=== PATIENT | male | born 1945 | race Caucasian/White ===

== ENCOUNTER 2021-11-08 02:27 | Inpatient (IN) | payer MEDICARE, OTHER ==
[~2021-11-08] VITALS: Ht 182.9 cm; Wt 108.9 kg
--- NOTE | 2021-11-08 02:45 | NUR ---
[id number] FROM [facility] FOR [facility] SLIP AND FALL C/O BACK PAIN. -HT, -KO. PLACED COMFORTABLY IN BED. VITALS CHECKED.
--- NOTE | 2021-11-08 02:50 | NUR ---
SEEN BY DR COOLEY AT BEDSIDE
--- NOTE | 2021-11-08 02:55 | NUR ---
PATIENT IS CONFUSED. AAOX3.
[2021-11-08] MEDS ORDERED: HYDROCODONE/APAP 5/325MG TABLET ONE (02:58)
[2021-11-08] MEDS ORDERED: HYDROCODONE/APAP 5/325MG TABLET PO ONE (03:00)
--- NOTE | 2021-11-08 03:15 | NUR ---
COVID SWAB DONE
--- NOTE | 2021-11-08 03:15 | NUR ---
IV CANNULA G20 INSERTED ON RIGHT AC.
--- NOTE | 2021-11-08 03:20 | NUR ---
PATIENT WAS BROUGHT TO CT DEPT
[2021-11-08 03:22] LABS: BASOPHILS # (AUTO) 0.1 K/uL (0.0-0.2); BASOPHILS % (AUTO) 0.7 % (0.0-2.0); EOSINOPHILS % (AUTO) 0.8 % (0.0-6.0); HEMATOCRIT 38 % (39-51); LYMPHOCYTES # (AUTO) 0.6 K/uL (0.8-4.8); MEAN CORPUSCULAR HGB CONC 34 g/dl (31.0-36.0); MEAN CORPUSCULAR VOLUME 97 fL (80-96); MONOCYTES # (AUTO) 0.9 K/uL (0.1-1.30); MONOCYTES % (AUTO) 10.7 % (2.0-12.0); NEUTROPHILS # (AUTO) 6.7 K/uL (1.8-8.9); NEUTROPHILS % (AUTO) 80.8 % (43.0-81.0); PLATELET COUNT (AUTO) 289 K/uL (150-450); RED BLOOD CELL COUNT(AUTO) 3.97 MIL/uL (4.5-6.0); WHITE BLOOD COUNT (AUTO) 8.3 K/uL (4.3-11.0)
[2021-11-08 03:31] LABS: CALCIUM, SERUM 8.5 mg/dL (8.5-10.1); CARBON DIOXIDE 31 mmol/L (21-32); CHLORIDE 105 mmol/L (98-107); GLUCOSE 143 mg/dL (74-106); POTASSIUM 3.6 mmol/L (3.5-5.1); SODIUM SERUM 142 mmol/L (136-145); UREA NITROGEN, BLOOD 17 mg/dL (7-18)
[2021-11-08 03:37] LABS: ACETAMINOPHEN 2 ug/ml (10-30); ALANINE AMINOTRANSFERASE 27 U/L (12-78); ALBUMIN 2.7 g/dL (3.4-5.0); ALKALINE PHOSPHATASE 93 U/L (46-116); ASPARTATE AMINOTRANSFERASE 21 U/L (15-37); BILIRUBIN,DIRECT 0.2 mg/dL (0.0-0.2); BILIRUBIN,TOTAL 0.7 mg/dL (0.2-1.0); TOTAL PROTEIN, SERUM 5.6 g/dL (6.4-8.2)
[2021-11-08 03:38] LABS: ALCOHOL, BLOOD < 3 mg/dL (0-0)
[2021-11-08 04:34] LABS: BILIRUBIN,URINE NEGATIVE (NEGATIVE); COLOR,URINE YELLOW (YELLOW); LEUKOCYTE ESTERASE ,URINE NEGATIVE (NEGATIVE); NITRITE, URINE NEGATIVE (NEGATIVE); PROTEIN,URINE NEGATIVE (NEGATIVE); UGLUCOSE NEGATIVE (NEGATIVE); UROBILINOGEN,URINE 0.2 EU/dL (0.2)
--- NOTE | 2021-11-08 05:10 | NUR ---
PATIENT PULLED HIS IV LINE.
[2021-11-08] MEDS ORDERED: Z GUARD REMEDY 4 OZ OINT TP PRN (07:00)
[2021-11-08] MEDS ORDERED: ONDANSETRON HCL/PF 4 MG/2 ML VIAL IVP PRN (07:00)
[2021-11-08] MEDS ORDERED: ACETAMINOPHEN 325 MG TABLET PO PRN (07:00)
[2021-11-08] MEDS ORDERED: IV NS 0.9% 1,000 ML IV PRN (07:00)
[2021-11-08] MEDS ORDERED: ENOXAPARIN SODIUM 40 MG/0.4 ML DISP.SYRIN SQ ONE (07:07)
[2021-11-08] MEDS: ENOXAPARIN SODIUM 40 MG/0.4 ML DISP.SYRIN SQ SCH (07:19)
[2021-11-08] MEDS ORDERED: ASPI-1169 PO (09:46)
--- NOTE | 2021-11-08 09:46 | NUR ---
FREDDIE DOYLE, REED MAN FROM [facility] [phone]
--- NOTE | 2021-11-08 09:51 | NUR ---
CALL FREDDIE DOYLE FOR UPDATES AND SHELL ARRANGE TRANSPORT WHEN HE IS DISCHARGED
--- NOTE | 2021-11-08 13:12 | NUR ---
wheeled patient via wheelchair in no distress accompanied by RN and emt. RN assigned at bedside to continue care.
--- NOTE | 2021-11-08 13:16 | NUR ---
RN NOTE- PT BROUGHT TO ROOM 324-1 FOR ADMISSION/SYNCOPE. AMBULATORY, STEADY AOX4 INTERACTIVE. VS STABLE. BEGIN ADMIT PROCESS
--- NOTE | 2021-11-08 13:17 | NUR ---
OPTICAL INSTRUMENT ASSEMBLER NOTE- 76 Y/O MALE BROUGHT FROM ED FOR S/P UNWITNESSED FALL. DX- SYNCOPE. PT W PAST MED HX OF APPENDECTOMY AND NO OTHER REPORTED MEDICAL PROBLEMS. PT WAS LIVING AT A [facility] BUT STATES HE HASN'T DRANK 'IN A WHILE'. TOX SCREEN IN ED WAS NEG ACROSS THE SPECTRUM. LABS WNL / UNREMARKABLE, CT SPINE /UNREMARKABLE, CXR / UNREMARKABLE, UA NEG, CARDIAC ECHO W MILD VALVE REGURGITATION ./ DR MORENO ASSESSED. PT IS COVID NEG. PT HAS HAD THREE MODERNA VACCS, INFLUENZA AND PNA VACCS WELL. PT IS AMBULATORY, ALERT ORIENTED TO PERSON PLACE PURPOSE THOUGH STATES 'I'M A LITTLE CLOUDY'. FAIR HISTORIAN. ANSWERS ALL QUERY. SKIN W ECCHYMOTIC AREAS RT THIGH AND SCABS TO WRISTS AND RLE. PHOTOS TAKEN. CHEST CLEAR TO AUSCULTATION, ABDOMEN SOFT NON TENDER NON DISTENDED. BS POSITIVE THROUGHOUT. PT PLACED ON TELE W READING OF SR 84. VS - BP- 154/95, RR- 18, TEMP- 97.4, O2 SATS AT 99% RA. IV SITE TO RT WRIST #20G. ORDERS RECEIVED AND COMPLIED WITH. LUNCH PROVIDED. BED LOCKED, SIDE RAILS UP, CALL LIGHT IN REACH. MONITOR / ASSIST
--- NOTE | 2021-11-08 15:45 | NUR ---
RN NOTE- PT FOUND TO HAVE PULLED OUT HIS IV. PT TRIED TO GET OOB TO USE BR. SHOWED PT CALL LIGHT AND URINAL AT BEDSIDE AGAIN. REMOVED IV HEPLOCK. DR NGUYEN NOTIFIED. DC IV FOR NOW. WILL SEE PT SHORTLY.
--- NOTE | 2021-11-08 16:45 | NUR ---
RN NOTE- PT W CONTINUED CONFUSION, FORGETFULNESS. ASKED PT WHERE HE WAS "' WAS HIS ANSWER AND HE THOUGHT IT WAS FEBRUARY. PT SEEMED BETTER ORIENTED EARLIER ON ADMIT. DR NGUYEN NOTIFIED. PT WITHOUT TREMORS OR SX OF WITHDRAWAL. TOX SCREEN NEG,, LAST DRINK STATED 'ONE WEEK AGO'. MONITORING AT PT BEDSIDE
--- NOTE | 2021-11-08 16:50 | NUR ---
RN NOTE-PT COULD USE A 1:1 SITTER. WILL SPEAK Christy HOLLINGSWORTH
--- NOTE | 2021-11-08 17:20 | NUR ---
RN NOTE- SPOKE W STAFF AT [facility] WHERE PT WAS BEFORE HE CAME HERE. STATED PT ON ATIVAN TID FOR DETOX LAST FEW DAYS. NO ETOH SINCE FRIDAY. HX OF THIRTY YEARS ETOH ABUSE. NOTIFIED MD FOR DETOX RX
--- NOTE | 2021-11-08 17:33 | NUR ---
RN NOTE- DR MORENO AT BEDSIDE TO ASSESS. PT REMOVED TELE MONITOR AGAIN
[2021-11-08] MEDS: LORAZEPAM 0.5 MG TABLET PO PRN (18:30)
--- NOTE | 2021-11-08 18:30 | NUR ---
RN NOTE- DR NGUYEN AT BEDSIDE / ASSESS PT. ATIVAN 0.5 MG [id number] ORDERED AND ONE ADMINISTERED. 1:1 LINE OF SIGHT AT PRESENT W THIS RN
--- NOTE | 2021-11-08 18:38 | NUR ---
RN CLOSING NOTE- PT IN ROOM , SITTING ON BED, CONFUSED, FORGETFUL THOUGH DIRECTABLE. ATIVAN 0.5 MG ADMINISTERED, NEEDS ATTENDED. ON 1:1 LINE OF SIGHT W THIS RN. BED LOCKED, SIDE RAILS UP , MONITOR FOR SAFETY
--- NOTE | 2021-11-08 19:40 | NUR ---
RN OPENING NOTE RECEIVED PATIENT IN BED; AWAKE, ALERT AND ORIENTED X2. BREATHING IS EVEN AND NONLABORED. ON ROOM AIR; TOLERATING WELL. NOT IN ANY FORM OF RESPIRATORY DISTRESS AT THIS TIME. DENIES ANY PAIN OR DISCOMFORT. NEEDS ATTENDED AND ANTICIPATED. SAFETY AND FALL PRECAUTIONS IMPLEMENTED: CALL LIGHT AND TABLE WITHIN EASY REACH, SIDE RAILS UP X3, BED ALARM ON, IN LOWEST LOCKED POSITION. WILL CONTINUE TO MONITOR
[2021-11-08 20:00] VITALS: BP 127/73
--- NOTE | 2021-11-08 22:00 | NUR ---
RN NOTE PATIENT NOTED WITH PERIODS OF CONFUSION; KEPT ON GOING OUT OF THE BED AND TO THE NURSING STATION. WILL CONTINUE TO MONITOR
--- NOTE | 2021-11-08 22:30 | NUR ---
CHARGE NURSE NOTE PATIENT WAS SO CONFUSED , HE MANAGE TO SNEAKOUT AND WENT DOWN TO [place], GOT A SITTER ORDER FROM DR. BOCANEGRA, ORDER NOTED AND CARRIED OUT
[2021-11-09] VITALS: BP 125/74
[2021-11-09 04:00] VITALS: BP 154/85
[2021-11-09 06:00] VITALS: BP_SYST 137; BP_SYST 153; BP_SYST 167; BP_DIAS 100; BP_DIAS 88; BP_DIAS 93
[2021-11-09 07:00] LABS: CALCIUM, SERUM 9.1 mg/dL (8.5-10.1); CREATININE 0.8 mg/dL (0.6-1.3); MAGNESIUM 2.6 mg/dL (1.8-2.4); PHOSPHORUS 3.1 mg/dL (2.5-4.9); POTASSIUM 3.7 mmol/L (3.5-5.1)
--- NOTE | 2021-11-09 07:00 | NUR ---
TOURING PRODUCTION MANAGER OPENING NOTES PATIENT LAYING IN BED, A/O X 2. PATIENT REFUSING TELE MONITORING. TOLERATING WELL ON ROOM AIR WITH NO S/S RESPIRATORY DISTRESS. NO COMPLAINTS OF PAIN OR DISCOMFORT AT THIS TIME. SAFETY MEASURES IN PLACE: BED IN LOWEST LOCKED POSITION, SIDE RAILS UP X 2, CALL LIGHT WITHIN REACH. WILL CONTINUE TO MONITOR.
--- NOTE | 2021-11-09 07:04 | NUR ---
RN CLOSING NOTE PATIENT IN BED; AWAKE, ALERT AND ORIENTED X2. BREATHING IS EVEN AND NONLABORED. STABLE ON ROOM AIR. IN NO ACUTE DISTRESS NOTED. DENIES ANY PAIN OR DISCOMFORT. NEEDS ATTENDED AND ANTICIPATED. SAFETY AND FALL PRECAUTIONS IN PLACE: CALL LIGHT AND TABLE WITHIN EASY REACH, SIDE RAILS UP X3, BED ALARM ON, IN LOWEST LOCKED POSITION. ENDORSED TO MORNING SHIFT FOR SERGIO.
[2021-11-09 07:05] LABS: BASOPHILS # (AUTO) 0.1 K/uL (0.0-0.2); BASOPHILS % (AUTO) 0.9 % (0.0-2.0); HEMATOCRIT 38 % (39-51); HEMOGLOBIN 13.1 g/dL (13.5-17.5); LYMPHOCYTES # (AUTO) 0.9 K/uL (0.8-4.8); LYMPHOCYTES % (AUTO) 11.6 % (20.0-44.0); MEAN CORPUSCULAR HGB CONC 34 g/dl (31.0-36.0); MEAN CORPUSCULAR VOLUME 96 fL (80-96); MONOCYTES # (AUTO) 0.9 K/uL (0.1-1.30); MONOCYTES % (AUTO) 12.5 % (2.0-12.0); NEUTROPHILS # (AUTO) 5.5 K/uL (1.8-8.9); PLATELET COUNT (AUTO) 294 K/uL (150-450); RED BLOOD CELL COUNT(AUTO) 4.02 MIL/uL (4.5-6.0); WHITE BLOOD COUNT (AUTO) 7.4 K/uL (4.3-11.0)
[2021-11-09 07:31] LABS: THYROID STIMULATING HORMONE 1.117 uIU/mL (0.358-3.74)
[2021-11-09] MEDS: ASPIRIN 81 MG TAB.CHEW PO SCH (08:20)
[2021-11-09] MEDS: ENOXAPARIN SODIUM 40 MG/0.4 ML DISP.SYRIN SQ SCH (08:21)
--- NOTE | 2021-11-09 18:45 | NUR ---
DIRECTOR OF NEUROLOGY CLOSING NOTE PATIENT LAYING IN BED, A/O X 2. PATIENT WITH TELE MONITOR IN PLACE READING NSR 98. TOLERATING WELL ON ROOM AIR WITH NO S/S RESPIRATORY DISTRESS. R FOREARM 22 G IV CLEAN, INTACT, AND INFUSING NS @ 75 ML/HR. NO COMPLAINTS OF PAIN OR DISCOMFORT AT THIS TIME. SAFETY MEASURES IN PLACE: BED IN LOWEST LOCKED POSITION, SIDE RAILS UP X 2, CALL LIGHT WITHIN REACH. SITTER AT BEDSIDE. ALL NEEDS MET. WILL ENDORSE TO MACHINE SHORTHAND REPORTER FOR SERGIO.
[2021-11-09] MEDS: LORAZEPAM 0.5 MG TABLET PO PRN (18:57)
--- NOTE | 2021-11-09 19:48 | NUR ---
received in his room alert orientated X1 eyeglasses on sitter at the bedside speech clear steady gait confused
[2021-11-09 20:00] VITALS: BP 127/70
[2021-11-10 04:00] VITALS: BP 162/69
--- NOTE | 2021-11-10 04:52 | NUR ---
CLOSING NOTES: ALERT AND ORIENTATED X1 FORGETFUL DX SYNCOPY AND AMS. REMOVED IV ACCIDENTLY GETTING OOB REINSERTED W/O PROBLEM. SITTER AT THE BEDSIDE SLEPT WELL CONTINENT ASSISTED TO THE BATHROOM STEADY ON LEGS
[2021-11-10 06:17] LABS: BASOPHILS # (AUTO) 0.1 K/uL (0.0-0.2); HEMATOCRIT 33 % (39-51); HEMOGLOBIN 11.5 g/dL (13.5-17.5); LYMPHOCYTES # (AUTO) 0.6 K/uL (0.8-4.8); LYMPHOCYTES % (AUTO) 10.2 % (20.0-44.0); MEAN CORPUSCULAR HGB CONC 35 g/dl (31.0-36.0); MEAN CORPUSCULAR VOLUME 95 fL (80-96); MONOCYTES # (AUTO) 0.8 K/uL (0.1-1.30); MONOCYTES % (AUTO) 13.5 % (2.0-12.0); NEUTROPHILS # (AUTO) 4.1 K/uL (1.8-8.9); NEUTROPHILS % (AUTO) 73.3 % (43.0-81.0); PLATELET COUNT (AUTO) 274 K/uL (150-450); RED BLOOD CELL COUNT(AUTO) 3.49 MIL/uL (4.5-6.0); WHITE BLOOD COUNT (AUTO) 5.6 K/uL (4.3-11.0)
[2021-11-10 06:38] LABS: CALCIUM, SERUM 8.5 mg/dL (8.5-10.1); CREATININE 0.7 mg/dL (0.6-1.3); MAGNESIUM 2.4 mg/dL (1.8-2.4); PHOSPHORUS 3.1 mg/dL (2.5-4.9); POTASSIUM 3.3 mmol/L (3.5-5.1)
[2021-11-10] MEDS ORDERED: POTASSIUM CHLORIDE 20 MEQ TAB.PRT.SR PO SCH (08:00)
[2021-11-10] MEDS: ASPIRIN 81 MG TAB.CHEW PO SCH (08:42)
[2021-11-10] MEDS: ENOXAPARIN SODIUM 40 MG/0.4 ML DISP.SYRIN SQ SCH (08:44)
[2021-11-10] MEDS: NIFEdipine XL (30MG) 30 MG TAB PO SCH (09:51)
[2021-11-10] MEDS: THIAMINE HCL 100 MG TABLET PO SCH (09:51)
[2021-11-10] MEDS: FOLIC ACID 1 MG TABLET PO SCH (09:51)
[2021-11-10 20:00] VITALS: BP 155/98
--- NOTE | 2021-11-10 23:50 | NUR ---
WEBSPHERE CONSULTANT OPENING NOTES: RECEIVED PATIENT AWAKE IN BED, BED IN LOW POSITION CALL LIGHTS WITHIN REACH, NO COMPLAIN OF PAIN AND DISCOMFORT AT THS TIME ON ROOM AIR SATURATING WELL, PATIENT WITH IV LINE AT RFA#22SL AMBULATORY A/OX1 WITH EPISODE OF CONFUSION NEEDS REDIRECTION, ON TELE MONITOR SR-62 WITH BBB NO SYMPTOMS WAS OBSERVED, PATIENT KEPT CLEAN AND DRY ALL NEEDS MET WILL CONTINUE TO MONITOR.
[2021-11-11] VITALS: BP 126/78
[2021-11-11 04:00] VITALS: BP 133/78
[2021-11-11 06:16] LABS: BASOPHILS # (AUTO) 0.1 K/uL (0.0-0.2); BASOPHILS % (AUTO) 0.9 % (0.0-2.0); EOSINOPHILS % (AUTO) 1.8 % (0.0-6.0); HEMATOCRIT 35 % (39-51); HEMOGLOBIN 11.9 g/dL (13.5-17.5); LYMPHOCYTES # (AUTO) 0.7 K/uL (0.8-4.8); LYMPHOCYTES % (AUTO) 11.6 % (20.0-44.0); MEAN CORPUSCULAR HGB CONC 34 g/dl (31.0-36.0); MEAN CORPUSCULAR VOLUME 95 fL (80-96); MONOCYTES # (AUTO) 0.8 K/uL (0.1-1.30); MONOCYTES % (AUTO) 13.4 % (2.0-12.0); NEUTROPHILS # (AUTO) 4.1 K/uL (1.8-8.9); NEUTROPHILS % (AUTO) 72.3 % (43.0-81.0); PLATELET COUNT (AUTO) 298 K/uL (150-450); RED BLOOD CELL COUNT(AUTO) 3.66 MIL/uL (4.5-6.0); WHITE BLOOD COUNT (AUTO) 5.7 K/uL (4.3-11.0)
--- NOTE | 2021-11-11 06:22 | NUR ---
RESIDENTIAL TEAM LEADER OPENING NOTES: PATIENT SLEEP IN BED COMFORTABLY, BED IN LOW POSITION CALL LIGHTS WITHIN REACH, NO COMPLAIN OF PAIN AND DISCOMFORT AT THIS TIME, ON ROOM AIR SATURATING WELL, PATIENT IS A/OX2 WITH EPISODE OF CONFUSION, ON TELE [id number] WITH BBB, PATIENT NEEDS REDIRECTION, PATIENT KEPT CLEAN AND DRY ALL NEEDS MET, ENDORSE TO INCOMING SHIFT.
[2021-11-11 06:42] LABS: CALCIUM, SERUM 8.6 mg/dL (8.5-10.1); CREATININE 0.6 mg/dL (0.6-1.3); MAGNESIUM 2.4 mg/dL (1.8-2.4); PHOSPHORUS 2.7 mg/dL (2.5-4.9); POTASSIUM 3.2 mmol/L (3.5-5.1)
--- NOTE | 2021-11-11 07:25 | NUR ---
RN OPENING NOTES RECEIVED PATIENT IN BED, AWAKE, A/O X1, WITH CONFUSION. NO SIGNS OF ACUTE DISTRESS NOTED. ON ROOM AIR, NO SOB NOTED. PATIENT AMBULATORY. SITTER AT BEDSIDE. SAFETY MEASURE IN PLACE. BED IN LOWEST AND LOCKED POSITION, SIDE RAILS UP X2, CALL LIGHT PLACED WITHIN EASY REACH. WILL CONTINUE TO MONITOR.
[2021-11-11] MEDS: ASPIRIN 81 MG TAB.CHEW PO SCH (08:58)
[2021-11-11] MEDS: THIAMINE HCL 100 MG TABLET PO SCH (08:58)
[2021-11-11] MEDS: ENOXAPARIN SODIUM 40 MG/0.4 ML DISP.SYRIN SQ SCH (08:58)
[2021-11-11] MEDS: FOLIC ACID 1 MG TABLET PO SCH (08:58)
[2021-11-11] MEDS: NIFEdipine XL (30MG) 30 MG TAB PO SCH (08:59)
[2021-11-11] MEDS ORDERED: Folic Acid PO (10:12)
[2021-11-11] MEDS ORDERED: NIFE-35 PO (10:12)
[2021-11-11] MEDS ORDERED: Thiamine HCL PO (10:12)
[2021-11-11] MEDS ORDERED: POTASSIUM CHLORIDE 20 MEQ TAB.PRT.SR PO ONE (10:30)
--- NOTE | 2021-11-11 18:53 | NUR ---
RN CLOSING NOTES PATIENT IN BED, AWAKE, A/O X1, WITH CONFUSION, REALITY AWARENESS PROVIDED NEEDED. NO SIGNS OF ACUTE DISTRESS NOTED. REMAINS STABLE ON ROOM AIR, NO SOB NOTED. PATIENT AMBULATORY. SITTER AT BEDSIDE. SAFETY MEASURE IN PLACE. BED IN LOWEST AND LOCKED POSITION, SIDE RAILS UP X2, CALL LIGHT PLACED WITHIN EASY REACH. WILL ENDORSE TO NEXT SHIFT FOR SERGIO.
--- NOTE | 2021-11-11 19:51 | NUR ---
MS RN OPENING NOTES: RECEIVED PATIENT AWAKE IN BED, BED IN LOW POSITION CALL LIGHTS WITHIN REACH, NO COMPLAIN OF PAIN AND DISCOMFORT AT THIS TIME, ON ROOM AIR SATURATING WELL, PATIENT IS A/OX1-2 WITH EPISODE OF CONFUSION, NEEDS RE ORIENTATION, PATIENT WITH 1:1 SITTER, KEPT CLEAN AND DRY ALL NEEDS MET WILL CONTINUE TO MONITOR.
[2021-11-11 20:00] VITALS: BP 135/73
--- NOTE | 2021-11-12 06:28 | NUR ---
MS RN CLOSING NOTES: PATIENT WAS AWAKE IN BED, BED IN LOW POSITION, CALL LIGHTS WITHIN REACH, NO COMPLAIN OF PAIN AND DISCOMFORT AT THIS TIME ON ROOM AIR SATURATING WELL, PATIENT IS A/OX 1-2 WITH EPISODE OF CONFUSION, NEEDS REDIRECTION, WITH 1:1 SITTER, PATIENT KEPT CLEAN AND DRY ALL NEEDS MET ENDORSE TO INCOMING SHIFT.,
--- NOTE | 2021-11-12 07:23 | NUR ---
RN OPENING NOTES RECEIVED PATIENT IN BED, AWAKE, A/O X1, WITH CONFUSION. NO SIGNS OF ACUTE DISTRESS NOTED. ON ROOM AIR, NO SOB NOTED, BREATHING EVEN AND UNLABORED.DENIES ANY PAIN OR DISCOMFORT AT THIS TIME. PATIENT AMBULATORY. SITTER AT BEDSIDE. SAFETY MEASURE IN PLACE. BED IN LOWEST AND LOCKED POSITION, SIDE RAILS UP X2, CALL LIGHT PLACED WITHIN EASY REACH. WILL CONTINUE TO MONITOR.
[2021-11-12] MEDS ORDERED: POTASSIUM CHLORIDE 20 MEQ TAB.PRT.SR PO ONE (08:00)
[2021-11-12 09:06] VITALS: BP 138/73
[2021-11-12] MEDS: THIAMINE HCL 100 MG TABLET PO SCH (09:06)
[2021-11-12] MEDS: NIFEdipine XL (30MG) 30 MG TAB PO SCH (09:06)
[2021-11-12] MEDS: ASPIRIN 81 MG TAB.CHEW PO SCH (09:06)
[2021-11-12] MEDS: FOLIC ACID 1 MG TABLET PO SCH (09:06)
[2021-11-12] MEDS: ENOXAPARIN SODIUM 40 MG/0.4 ML DISP.SYRIN SQ SCH (09:08)
--- NOTE | 2021-11-12 16:48 | NUR ---
RNDISCHARGE NOTES DISCHARGED PATIENT TO [facility] [place], IN STABLE CONDITION. PATIENT IS AWAKE, A/O X2, VERBALLY RESPONSIVE. NO SIGNS OF ACUTE DISTRESS NOTED. EXITCARE FOLDER GIVEN TO [facility] EMT, ENDORSED. REPORT GIVEN TO FARRUKH ROPER FROM [facility]. IV ACCESS ON RIGHT FORE ARM REMOVED, NO BLEEDING NOTED, COVERED WITH PRESSURE DRESSING. ALL BELONGINGS ACCOUNTED FOR, FORMS SIGNED WITH ANOTHER RN, PATIENT UNABLE TO SIGN DUE TO COGNITIVE IMPAIRMENT. PATIENT LEFT UNIT VIA GURNEY @[id number], PICKED UP BY [facility]. CN AWARE OF DISCHARGE.
== END 2021-11-12 16:45 | DRG 641 ==
LOC: ER 02:33 → TRANSITION 06:05 → TELE 12:45 → MED 11-11 13:53
PROVIDERS: ADMIT Student in an Organized Health Care Education/Training Program; ATTEND Internal Medicine
DX: E86.0 Dehydration (principal); E44.0 Moderate protein-calorie malnutrition; F10.231 Alcohol dependence with withdrawal delirium; E51.2 Wernicke's encephalopathy; Y92.89 Other specified places as the place of occurrence of the external cause; Z20.822 Contact with and (suspected) exposure to COVID-19; Y90.0 Blood alcohol level of less than 20 mg/100 ml; D64.9 Anemia, unspecified; E88.09 Other disorders of plasma-protein metabolism, not elsewhere classified; Z91.19 Patient's noncompliance with other medical treatment and regimen; F10.26 Alcohol dependence with alcohol-induced persisting amnestic disorder; I10 Essential (primary) hypertension; W01.0XXA Fall on same level from slipping, tripping and stumbling without subsequent striking against object, initial encounter
CPT/HCPCS: 36415; 70450-TC; 71045-TC; 72131-TC; 80048-TC; 80061-TC; 80076-TC; 82140-TC; 82962-TC; 83540-TC; 83735-TC; 84100-TC; 84425; 84443-TC; 84484-TC; 85025-TC; 85730-TC; 87081-TC; 93307-TC; 97116-TC; 97530-TC; C9803; G0378; G0480; J1650; J7030